=== PATIENT | female | born 1985 | race Caucasian/White ===

== ENCOUNTER 2018-07-25 08:01 | Emergency (ER) | payer MEDICAID ==
[~2018-07-25] VITALS: Ht 157.5 cm; Wt 58.0 kg
[~2018-07-25 08:01] MED LIST: FERR27TA PO; PREN1TAB49 PO
[2018-07-25 08:04] VITALS: Ht 157.5 cm; Wt 58.0 kg
[2018-07-25] MEDS ORDERED: GLYCERIN (ADULT) SUPP PR ONE (08:30)
[2018-07-25] MEDS ORDERED: ACET500C5 PO (09:25)
[2018-07-25] MEDS ORDERED: GLYC1SUP92 PR (09:25)
[2018-07-25] MEDS ORDERED: DOCU-144 PO (09:25)
--- NOTE | 2018-07-25 10:03 | ERD ---
ER Documentation Chief Complaint Chief Complaint pt is bib self with c/o abd pain x 2 wks, constipation x 1 wk, saw PMD HPI 33-year-old female presenting with abdominal pain times 2 weeks. Patient states been constipated for about a week with her last bone bowel movement being 5 days ago. She states that her pain is worsening and it is in the lower pelvic region as well as the epigastric region. She denies any vomiting. Denies nausea. Denies fevers. Has not taken medications for symptoms. Denies medical problems. NKDA. Surgical history: Csection. Social history denies ROS All systems reviewed and are negative except as per history of present illness. Medications Home Meds Active Scripts Acetaminophen* (Tylophen*) 500 Mg Capsule, 1 CAP PO Q6H PRN for PAIN AND OR ELEVATED TEMP, #20 CAP Prov:JOSHUA BLEVINS PA-C 07/25/18 Glycerin* (Glycerin (Adult)*) 1 Each Supp.rect, 1 EACH [place] DAILY PRN for CONSTIPATION, #30 SUPP.RECT Prov:JOSHUA BLEVINS PA-C 07/25/18 Docusate Sodium* (Colace*) 100 Mg Capsule, 100 MG PO TID, #30 CAP Prov:JOSHUA BLEVINS PA-C 07/25/18 Reported Medications Ferrous Sulfate (Iron) 1 Tab Tablet, 1 TAB PO DAILY 08/18/13 Vits W-Ca,Fe,Fa(<1MG) () 1 Tab Tablet, 1 TAB PO 12/19/11 Allergies Allergies: Coded Allergies: No Known Allergies (Verified Allergy, Unknown, 11/09/13) PMhx/Soc History of Surgery: No Anesthesia Reaction: No Hx Neurological Disorder: No Hx Respiratory Disorders: No Hx Cardiac Disorders: No Hx Psychiatric Problems: No Hx Miscellaneous Medical Probl: Yes (Chronic back pain) Hx Alcohol Use: No Hx Substance Use: No Hx Tobacco Use: No Smoking Status: Never smoker Physical Exam Vitals Vital Signs Date Temp Pulse Resp B/P (MAP) Pulse Ox O2 O2 Flow FiO2 Time Delivery Rate 07/25/18 98.4 104 16 125/78 100 08:04 (94) Physical Exam Const: No acute distress Head: Atraumatic Eyes: Normal Conjunctiva ENT: Normal External Ears, Nose and Mouth. Neck: Full range of motion. No meningismus. Resp: Clear to auscultation bilaterally Cardio: Regular rate and rhythm, no murmurs Abd: Soft, non tender, non distended. Normal bowel sounds Skin: No petechiae or rashes Back: No midline or flank tenderness Ext: No cyanosis, or edema Neur: Awake and alert Psych: Normal Mood and Affect Result Diagram: 07/25/18 0832 07/25/18 0832 Results 24 hrs Laboratory Tests Test 07/25/18 08:32 07/25/18 08:38 07/25/18 08:39 White Blood Count 6.1 10^3/ul Red Blood Count 4.04 10^6/ul Hemoglobin 11.9 g/dl Hematocrit 36.1 % Mean Corpuscular Volume 89.4 fl Mean Corpuscular Hemoglobin 29.5 pg Mean Corpuscular Hemoglobin Concent 33.0 g/dl Red Cell Distribution Width 12.6 % Platelet Count 380 10^3/UL Mean Platelet Volume 9.0 fl Immature Granulocytes % 0.300 % Neutrophils % 64.8 % Lymphocytes % 26.1 % Monocytes % 4.6 % Eosinophils % 3.5 % Basophils % 0.7 % Nucleated Red Blood Cells % 0.0 /100WBC Immature Granulocytes # 0.020 10^3/ul Neutrophils # 3.9 10^3/ul Lymphocytes # 1.6 10^3/ul Monocytes # 0.3 10^3/ul Eosinophils # 0.2 10^3/ul Basophils # 0.0 10^3/ul Nucleated Red Blood Cells # 0.0 10^3/ul Sodium Level 142 mmol/L Potassium Level 4.0 mmol/L Chloride Level 106 mmol/L Carbon Dioxide Level 24 mmol/L Anion Gap 12 Blood Urea Nitrogen 13 mg/dl Creatinine 0.51 mg/dl Est Glomerular Filtrat Rate mL/min > 60 mL/min Glucose Level 83 mg/dl Calcium Level 9.2 mg/dl Total Bilirubin 0.3 mg/dl Direct Bilirubin 0.00 mg/dl Indirect Bilirubin 0.3 mg/dl Aspartate Amino Transf (AST/SGOT) 19 IU/L Alanine Aminotransferase (ALT/SGPT) 22 IU/L Alkaline Phosphatase 72 IU/L Total Protein 8.5 g/dl Albumin 4.5 g/dl Globulin 4.00 g/dl Albumin/Globulin Ratio 1.12 Lipase 54 U/L Bedside Urine pH (LAB) 7.0 Bedside Urine Protein (LAB) Negative Bedside Urine Glucose (UA) Negative Bedside Urine Ketones (LAB) Negative Bedside Urine Blood Trace-intact Bedside Urine Nitrite (LAB) Negative Bedside Urine Leukocyte Esterase (L Negative POC Beta HCG, Qualitative NEGATIVE Current Medications Medications Dose Sig/Clay Start Time Status Last (Trade) Ordered Route PRN Stop Time Admin Dose Reason Admin Glycerin 1 supp ONCE ONCE 07/25/18 DC 07/25/18 (Glycerin [place] 08:30 07/25/18 08:42 (Adult)) 08:31 Procedures/MDM DIAGNOSTIC IMAGING REPORT Patient: RENÉE LINDO : 1985 Age: 33 Sex: F MR #: [id number] DOS: 07/25/18817 Ordering MD: SHREYAS BLEVINS PA-C Location: [facility] Room/Bed: PROCEDURE: CT of the abdomen and pelvis without contrast CLINICAL INDICATION: Abdominal pain and constipation. TECHNIQUE: Spiral CT images through the abdomen and pelvis without the use of oral and without the use of intravenous contrast. The administered radiation dose is CTDI 7.09 mGy and DLP 400.21 mGy-cm. One or more of the following dose reduction techniques were used: automated exposure control, adjustment of the mA and/or kV according to patient size, or use of iterative reconstruction technique. DICOM images are available. COMPARISON: None FINDINGS: The study is limited by lack of intravenous contrast. Lower thorax: Lung bases are clear. Liver: The liver is unremarkable in appearance. Biliary: The gallbladder is unremarkable.. No biliary ductal dilatation is seen. Pancreas: Unremarkable. Spleen: The spleen is unremarkable in appearance Adrenal glands: Unremarkable in appearance. No focal nodule.. Genitourinary: No hydronephrosis or renal calculi are seen.. Urinary bladder is decompressed. Gastrointestinal Tract: There is a mild to moderate amount of colonic stool present throughout. No dilated loops or focal transition is seen to suggest the presence of obstruction. The appendix is unremarkable in appearance. Lymph nodes: No adenopathy is seen... Vascular structures: The aorta and mesenteric vessels are unremarkable.. Peritoneal cavity: No free air, free or loculated fluid seen.. Soft tissues: Small fat containing umbilical hernia Reproductive Organs: Within normal limits. Musculoskeletal: Intact without acute or aggressive appearing osseous abnormality.. IMPRESSION: No definite acute intra-abdominal or pelvic abnormality including no evidence of urinary tract stone or secondary signs of urinary tract obstruction. Mild to moderate colonic stool burden without evidence of intestinal obstruction or appendicitis, free air or abscess.. MDM: 33-year-old female presenting with findings consistent with constipation. Patient will be discharged with supportive medications. I have low suspicion for acute abdomen. I have low suspicion for diverticulitis. I have low suspicion for urinary tract infection or nephrolithiasis. Patient is discharged stricter precautions and told to follow-up with primary care within 1-2 days for close evaluation. Patient is told symptoms change or worsen to return immediately to the ER. All questions answered at discharge Departure Diagnosis: Primary Impression: Constipation Additional Impression: Abdominal pain Condition: Stable Patient Instructions: Abdominal Pain, Constipation (Adult) Referrals: [facility] YOU HAVE RECEIVED A MEDICAL SCREENING EXAM AND THE RESULTS INDICATE THAT YOU DO NOT HAVE A CONDITION THAT REQUIRES URGENT TREATMENT IN THE EMERGENCY DEPARTMENT. FURTHER EVALUATION AND TREATMENT OF YOUR CONDITION CAN WAIT UNTIL YOU ARE SEEN IN YOUR DOCTORS OFFICE WITHIN THE NEXT 1-2 DAYS. IT IS YOUR RESPONSIBILITY TO MAKE AN APPOINTMENT FOR FOLOW-UP CARE. IF YOU HAVE A PRIMARY DOCTOR --you should call your primary doctor and schedule an appointment IF YOU DO NOT HAVE A PRIMARY DOCTOR YOU CAN CALL OUR PHYSICIAN REFERRAL HOTLINE AT IF YOU CAN NOT AFFORD TO SEE A PHYSICIAN YOU CAN CHOSE FROM THE [facility] [id number] [facility] [address] [facility] [facility] [address] [facility] [address] [facility] [address] [facility] [facility] [address] Additional Instructions: FOLLOW UP WITH YOUR PRIMARY CARE PHYSICIAN TOMORROW.Return to this facility if you are not improving as expected. JOSHUA BLEVINS PA-C Jul 25, 2018 10:03
== END 2018-07-25 09:37 | disposition home or self-care (01) ==
LOC: FTE 08:01
DX: K59.00 Constipation, unspecified (principal); R10.2 Pelvic and perineal pain
CPT/HCPCS: 36415; 74176; 80053; 81003; 81025; 83690; 85025; Z7502; Z7610